=== PATIENT | male | born 1990 | race Two or more races ===

== ENCOUNTER 2023-02-07 06:40 | Emergency (ER) | payer SELFPAY ==
[~2023-02-07] VITALS: Ht 177.8 cm; Wt 67.2 kg
[2023-02-07] MEDS ORDERED: ACETAMINOPHEN 325 MG TAB PO ONE (07:00)
[2023-02-07] MEDS ORDERED: TRAM50TA2 PO (08:12)
[2023-02-07 08:47] VITALS: O2SAT 98
[2023-02-07 08:53] VITALS: BP 118/63; PULSE 79; RESP 18; TEMP 99; O2SAT 99
== END 2023-02-07 09:44 ==
LOC: EDBD → ER 06:40
DX: S32.019A Unspecified fracture of first lumbar vertebra, initial encounter for closed fracture (principal); F12.10 Cannabis abuse, uncomplicated; V43.52XA Car driver injured in collision with other type car in traffic accident, initial encounter; Y93.89 Activity, other specified; Y92.410 Unspecified street and highway as the place of occurrence of the external cause; Y99.8 Other external cause status
CPT/HCPCS: 72100